=== PATIENT | male | born 2000 | race Caucasian/White ===

== ENCOUNTER 2022-09-05 21:36 | Emergency (ER) | payer OTHER ==
[2022-09-05 21:39] VITALS: BP 137/83; RESP 18; TEMP 98.4; BMI 31.1
[2022-09-05] MEDS ORDERED: IBUPROFEN 600 MG TABLET (FP) PO ONE ×2 (22:45→22:54)
[2022-09-05] MEDS ORDERED: PSEUDOEPHEDRINE HCL 30 MG TABLET PO ONE (22:46)
[2022-09-05] MEDS ORDERED: PSEUDOEPHEDRINE HCL 60 MG TABLET ONE (22:54)
[2022-09-05 23:11] VITALS: PULSE 98
== END 2022-09-05 23:51 | disposition home or self-care (01) ==
LOC: JER 21:36
DX: R51.9 Headache, unspecified (principal); R05.1 Acute cough
CPT/HCPCS: 0241U-QW; 71046-TC-FY; 99284-25